=== PATIENT | male | born 1950 | race African-American/Black ===

== ENCOUNTER 2023-04-03 17:57 | Emergency (ER) | payer OTHER ==
[~2023-04-03] VITALS: Ht 154.9 cm; Wt 90.7 kg
[2023-04-03 17:58] VITALS: TEMP 98
[2023-04-03 18:31] LABS: PLATELET COUNT 209 K/uL (142-355)
[2023-04-03 18:46] LABS: POTASSIUM 4.5 mmol/L (3.6-5.2)
[2023-04-03 18:48] LABS: PARTIAL THROMBOPLASTIN TIME 32.6 SECONDS (23.9-36.7)
[2023-04-03 21:24] VITALS: BP 161/86
== END 2023-04-03 21:24 | disposition home or self-care (01) ==
LOC: ED 17:57
PROVIDERS: Emergency Medicine
DX: E86.0 Dehydration (principal); E78.00 Pure hypercholesterolemia, unspecified; E66.9 Obesity, unspecified; E11.9 Type 2 diabetes mellitus without complications; E78.5 Hyperlipidemia, unspecified
CPT/HCPCS: 36415; 80053; 82550; 84484; 85027; 85610; 85730; 93005; 96360; 99284